=== PATIENT | female | born 1950 | race Caucasian/White ===

== ENCOUNTER → 2021-08-06 07:27 | Outpatient (BNVA) | payer MEDICARE, SELFPAY | PROVIDERS: PCP Obstetrics & Gynecology; Referring Provider Obstetrics & Gynecology; Visit Provider Surgery | DX: L98.8 Other specified disorders of the skin and subcutaneous tissue (principal) | CPT/HCPCS: 99202 ==

== ENCOUNTER 2021-08-12 02:02 | Outpatient (CLI) | payer MEDICARE, SELFPAY ==
[2021-08-12 12:50] LABS: Source Nasal/Nares
[2021-08-12 18:06] LABS: COVID-19 PCR Negative (Negative)
== END 2021-08-12 02:03 | disposition home or self-care (01) ==
LOC: LBO 02:02
PROVIDERS: PCP Obstetrics & Gynecology; Visit Provider Surgery
DX: Z20.822 Contact with and (suspected) exposure to COVID-19 (principal); Z01.818 Encounter for other preprocedural examination
CPT/HCPCS: 87635

== ENCOUNTER 2021-08-14 06:04 | Day surgery (SDC) | payer MEDICARE, SELFPAY ==
--- NOTE | 2021-08-14 06:21 | ROE_ITS ---
Date of service: 08/14/21 Time of Service: 07:30 Operative Note Operative Note DATE OF PROCEDURE: 08/14/21 PRE-OP DIAGNOSIS: Right Upper extremity skin lesion POST-OP DIAGNOSIS: same PROCEDURE: Excision of RUE skin lesion SURGEON: Daila Schwartz MATRIX PLATER: Gris Bright ANESTHESIA TYPE: Local By Surgeon (0.25% Bupivocaine mixed with Exparel) ESTIMATED BLOOD LOSS: 15 PATHOLOGY: other (RUE skin lesion (single suture superior and double suture medial)) COMPLICATIONS: None Patient was transported to: same day Patient's condition: stable Indications: Mrs Hernández is a pleasant 71-year-old female who is healthy and takes no medications. She is here today because she has a skin lesion that has been growing over the last 2 months. [facility] was [facility] at [facility] and referred to us for excision. The lesion is on her right upper extremity, it is raised and has scalloped edges. This is suspicious for basal cell cancer. Due to its size I would like to excise this in the procedure room so that I have cautery. The procedure was explained to the patient in layman's terms. Risks and benefits were reviewed as well as complications. The patient wished to proceed. Complications include but are not limited to bleeding, infection, need for further surgery, recurrence, and wound dehiscence. Questions were entertained and answered to her satisfaction. We will test the patient for Covid prior to the procedure. The patient is vaccinated. Proceed with excision of lesion under local. Findings: lesion measured 2 cm x 1.3 cm Procedure Description: After informed consent was obtained the patient was taken to the procedure room and placed in a supine position. Monitors were applied. A time out was done and the patients name, , procedure to be done and site, allergies to medications were reviewed. Fire risk was assessed. Next the skin was prepped and draped in a standard surgical fashion. The dermis and subcutaneous tissue was then infiltrated with the above local anesthetic. An incision was made around the lesion with a 15 blade. The excised skin measured 8 x 3 cm. Dissection was done with cautery down to the subcutaneous tissue. Once the lesion was completely dissected it was marked with a single suture superior and a double suture medial. The specimen was then placed into formalin and sent to pathology. The wound was irrigated with some saline. Bleeding was stopped using cautery. Skin flaps were created medially and laterally with cautery to reduce tention on the closure. Once the wound was clean and dry the subcutaneous tissue was re-approximated with 3-0 Vicryl interrupted sutures. The dermis was closed with interrupted horizontal mattress suture of 2-0 Proline. Skin was cleaned and dried and mastasol and steri-strips were applied. A PREM dressing was applied over the closed incision to help with healing. The patient tolerated the procedure well and there were no immediate complications. Needle counts were correct at the end of the case.
[2021-08-14 06:30] VITALS: BP 136/84; PULSE 88; RESP 18; TEMP 36.8; O2SAT 91
--- NOTE | 2021-08-14 06:30 | W.PM.DSUDISC ---
Discharge Plan Disposition Patient Disposition: HOME Condition: Good Discharge Details Reason For Visit: Skin lesion Attending Provider: Dalia Schwartz Primary Care Provider: Amrit Patterson Home Meds and New Rx's Prescriptions: No Action No Known Home Meds RF: 0 Discharge Instructions Additional Instructions: Activity at Home after surgery: 1. As tolerated Diet, Nutrition, & wound healin. As tolerated Pain Medications: 1. Tylenol 650mg every 6 hours as needed and Ibuprofen 600 mg every 6 hours as needed. You may alternate between the 2 medications every 3 hours 2. If a narcotic has been prescribed take as directed only for breakthrough pain For Constipation: 1. Take Milk of Magnesia or MiraLax as needed for constipation Other: 1. You may shower daily. Do not scrub the incisions 2. Do not soak the incisions for 1 week 3. You may alternate ice and heat as needed for pain and swelling Wound Care: 1. Keep the incisions clean and dry Please call our office if you develop: 1. Fevers >101.5 2. Nausea or Vomiting 3. Worsening pain 4. Redness and thick discharge from the wounds If after hours please call the Hospital at and ask to speak to the on-call surgeon Referrals: Dalia Schwartz MD [ [facility] STAFF PHYSICIAN] - 08/20/21 9:15 am (08/23/21 at 10:00 am) Activity:: Activity as Tolerated Diet:: As Tolerated Discharge Orders Discharge Orders: Discharge Order (Routine); Ordered 08/14/21 Ordered By: Dalia Schwartz
--- NOTE | 2021-08-14 07:44 | SKI_PTH ---
PATIENT: Nazia Hernández LOC: [facility] U#:[id number] AGE/SX: 71/F ROOM: RE08/14/[address]: Dalia Schwartz MD : [id number] BED: DIS: 08/14/2021 SPEC #: [id number] RECD: 08/14/21 12:43 STATUS: CLARA REQ #: [id number] [place]: 08/14/21 07:[address]: Dalia Schwartz DEPT: Surgical Specimen RECD BY: Sarah Lopez ENTERED: 08/14/21 12:44 SP TYPE: TY LAMBERT DR: Asher Patterson Tissues: 1 - SKIN BIOPSY(SHAVE/PUNCH) Procedures: SKIN LEVEL 4 Comments: [id number]
[2021-08-14] MEDS: Bupivacaine LIPOSOME/PF 133 MG/10 ML VIAL IJ (07:48)
[2021-08-14] MEDS: Bupivacaine 0.25% Pres-Free 30 ML VIAL (07:49)
[2021-08-14 08:12] VITALS: BP 146/81; PULSE 81; RESP 18; TEMP 36.4; O2SAT 91
== END 2021-08-14 08:45 | disposition home or self-care (01) ==
PROVIDERS: PCP Obstetrics & Gynecology; Visit Provider Surgery
PROC: (CPT 11603; principal; 2021-08-14 07:30)
DX: C44.622 Squamous cell carcinoma of skin of right upper limb, including shoulder; F17.210 Nicotine dependence, cigarettes, uncomplicated
CPT/HCPCS: 11603; 12032; 88305

== ENCOUNTER → 2021-08-20 09:10 | Outpatient (BNVA) | payer MEDICARE, SELFPAY | PROVIDERS: PCP Obstetrics & Gynecology; Referring Provider Obstetrics & Gynecology; Visit Provider Surgery | DX: Z48.817 Encounter for surgical aftercare following surgery on the skin and subcutaneous tissue (principal) ==

== ENCOUNTER → 2021-08-23 09:54 | Outpatient (BNVA) | payer MEDICARE, SELFPAY | PROVIDERS: PCP Obstetrics & Gynecology; Referring Provider Obstetrics & Gynecology; Visit Provider Surgery | DX: Z48.817 Encounter for surgical aftercare following surgery on the skin and subcutaneous tissue (principal); C44.622 Squamous cell carcinoma of skin of right upper limb, including shoulder ==